=== PATIENT | male | born 1960 | race Hispanic/Latino ===

== ENCOUNTER 2020-03-18 15:06 | Inpatient (IN) | payer MEDICARE ==
[~2020-03-18] VITALS: Ht 167.6 cm; Wt 90.7 kg
[~2020-03-18 15:06] MED LIST: LOSARTAN PO; METFORMIN PO; METOPROLOL PO; NORCO; NOVOLIN INJ; SIMVASTATIN PO
[2020-03-18 16:19] LABS: BASOPHILS % 0.4 % (0.0-1.0); EOSINOPHILS # (AUTO) 0.1 (0.0-0.4); EOSINOPHILS % 0.8 % (0.0-6.0); HEMATOCRIT 34.9 % (38.2-49.6); HEMOGLOBIN 11.4 g/dL (14.0-18.0); LYMPHOCYTES # (AUTO) 1.9 (1.0-3.2); LYMPHOCYTES % 17.4 % (18.0-39.1); MEAN CORPUSCULAR HEMOGLOBIN 26.3 pg (28-32); MEAN CORPUSCULAR HGB CONC 32.7 g/dL (31-35); MEAN CORPUSCULAR VOLUME 80.4 fL (81-99); MONOCYTES # (AUTO) 0.7 (0.2-0.8); MONOCYTES % 6.3 % (4.4-11.3); NEUTROPHILS % 74.8 % (38.7-80.0); PLATELET COUNT 549 x10e3/uL (140-360); RED BLOOD COUNT 4.34 x10e6/uL (4.3-5.7)
[2020-03-18] MEDS ORDERED: GADOBENATE DIMEGLUMINE 1 ML IV ONE (16:36)
[2020-03-18 16:54] LABS: ALBUMIN 3.2 g/dL (3.5-5.0); ALBUMIN/GLOBULIN RATIO 0.7 (0.8-2.0); ANION GAP 17.5 mmol/L (8-16); CALCIUM 8.7 mg/dL (8.4-10.2); CREATININE, SERUM 1.33 mg/dL (0.72-1.25); POTASSIUM 4.5 mmol/L (3.5-5.1)
[2020-03-18] MEDS ORDERED: DEXTROSE 50% SYRINGE 50 ML IV PRN (19:30)
[2020-03-18] MEDS ORDERED: CEFEPIME HCL 1 GM VIAL IV SCH (19:30)
[2020-03-18] MEDS ORDERED: VANCOMYCIN 1GM/NS 250 ML 250 ML IV SCH (20:15)
[2020-03-18] MEDS: HYDROCODONE/APAP 7.5MG-325MG 1 EA TAB PO PRN (20:58)
[2020-03-18] MEDS: CEFEPIME 1GM/NS 0.9% 50 ML 50 ML IV SCH (20:58)
[2020-03-18] MEDS: INSULIN REGULAR, HUMAN 100 UNIT/1 ML 3ML VIAL SQ SCH (21:28)
[2020-03-19] MEDS: INSULIN REGULAR, HUMAN 100 UNIT/1 ML 3ML VIAL SQ SCH ×3 (08:09→17:08)
[2020-03-19] MEDS: CEFEPIME 1GM/NS 0.9% 50 ML 50 ML IV SCH ×2 (09:40→21:00)
[2020-03-19] MEDS ORDERED: ONDANSETRON HCL INJ 2MG/ML 2ML 2 MG/ML VIAL IV PRN (12:45)
[2020-03-19] MEDS ORDERED: MORPHINE SULFATE INJ 4 MG/ML INJ 1ML IV PRN (12:45)
[2020-03-19] MEDS ORDERED: ACETAMINOPHEN 325 MG TAB PO PRN (12:45)
[2020-03-19] MEDS ORDERED: ALBUTEROL/IPRATROPIUM 3 ML NEB NEB PRN (12:45)
[2020-03-19] MEDS ORDERED: LIDOCAINE 4% PATCH TP PRN (12:45)
[2020-03-19] MEDS ORDERED: POLYETHYLENE GLYCOL 3350 17 GM PACK PO PRN (12:45)
[2020-03-19] MEDS ORDERED: DEXTROSE 50% SYRINGE 50 ML IV PRN ×2 (12:45)
[2020-03-19] MEDS ORDERED: POTASSIUM CHLORIDE 20 MEQ TAB CR PO PRN (12:45)
[2020-03-19] MEDS ORDERED: HYDRALAZINE HCL 20 MG/ML VIAL IV PRN (12:45)
[2020-03-19] MEDS ORDERED: SIMETHICONE 80 MG CHEW PO PRN (12:45)
[2020-03-19] MEDS ORDERED: DOCUSATE SODIUM 100 MG CAP PO PRN (12:45)
[2020-03-19] MEDS ORDERED: GUAIFENESIN/CODEINE 10 ML CUP PO PRN (12:45)
[2020-03-19] MEDS ORDERED: BENZONATATE 100 MG CAP PO PRN (12:45)
[2020-03-19] MEDS ORDERED: DIPHENHYDRAMINE HCL 25 MG CAP PO PRN (12:45)
[2020-03-19] MEDS ORDERED: GLIPIZIDE5 MG PO (17:11)
[2020-03-19] MEDS: ENOXAPARIN SOD INJ 40 MG/0.4 ML SYR SC SCH (17:31)
[2020-03-19] MEDS: VANCOMYCIN 1GM/NS 250 ML 250 ML IV SCH (17:31)
[2020-03-19 20:45] VITALS: BP 140/72
[2020-03-19 20:59] VITALS: BP 146/87
[2020-03-19 21:00] VITALS: BP 146/87
[2020-03-19] MEDS ORDERED: MELATONIN 5 MG TABLET PO PRN (21:00)
[2020-03-19] MEDS ORDERED: SODIUM CHLORIDE 0.9% 250ML 250 ML ONE (21:47)
[2020-03-19] MEDS ORDERED: HUMULIN 70100 UNIT/3 SQ (23:59)
[2020-03-20] VITALS (8 sets, daily range): BP systolic 122–161; BP diastolic 76–90
[2020-03-20] MEDS: INSULIN REGULAR, HUMAN 100 UNIT/1 ML 3ML VIAL SQ SCH ×4 (00:04→15:56)
[2020-03-20 05:05] LABS: BASOPHILS % 0.7 % (0.0-1.0); EOSINOPHILS # (AUTO) 0.4 (0.0-0.4); EOSINOPHILS % 6.5 % (0.0-6.0); HEMATOCRIT 32.4 % (38.2-49.6); HEMOGLOBIN 10.4 g/dL (14.0-18.0); LYMPHOCYTES # (AUTO) 2.1 (1.0-3.2); LYMPHOCYTES % 38.3 % (18.0-39.1); MEAN CORPUSCULAR HEMOGLOBIN 26.2 pg (28-32); MEAN CORPUSCULAR HGB CONC 32.1 g/dL (31-35); MEAN CORPUSCULAR VOLUME 81.6 fL (81-99); MONOCYTES # (AUTO) 0.6 (0.2-0.8); MONOCYTES % 11.2 % (4.4-11.3); NEUTROPHILS # (AUTO) 2.3 (2.1-6.9); NEUTROPHILS % 43.1 % (38.7-80.0); PLATELET COUNT 460 x10e3/uL (140-360); RED BLOOD COUNT 3.97 x10e6/uL (4.3-5.7); RED CELL DISTRIBUTION WIDTH 12.9 % (11.7-14.4)
[2020-03-20 05:22] LABS: ALBUMIN 2.6 g/dL (3.5-5.0); ALBUMIN/GLOBULIN RATIO 0.6 (0.8-2.0); ALKALINE PHOSPHATASE 57 IU/L (40-150); ANION GAP 15.1 mmol/L (8-16); BLOOD UREA NITROGEN 23 mg/dL (7-26); BUN/CREATININE RATIO 23 (6-25); CALCIUM 8.5 mg/dL (8.4-10.2); CARBON DIOXIDE 22 mmol/L (22-29); CHLORIDE 104 mmol/L (98-107); CREATININE, SERUM 0.98 mg/dL (0.72-1.25); EST GLOMERULAR FILTRATION RATE > 60 ML/MIN (60-); GLUCOSE 121 mg/dL (74-118); MAGNESIUM 1.7 MG/DL (1.3-2.1); PHOSPHORUS 3.9 MG/DL (2.3-4.7); POTASSIUM 4.1 mmol/L (3.5-5.1); SODIUM 137 mmol/L (136-145)
[2020-03-20 05:41] LABS: ALANINE AMINOTRANSFERASE < 6 IU/L (0-55)
[2020-03-20] MEDS: PANTOPRAZOLE SOD 40 MG TABEC PO SCH (09:16)
[2020-03-20] MEDS: CEFEPIME 1GM/NS 0.9% 50 ML 50 ML IV SCH ×2 (09:16→20:06)
[2020-03-20] MEDS: VANCOMYCIN 1GM/NS 250 ML 250 ML IV SCH (15:52)
[2020-03-20] MEDS: ENOXAPARIN SOD INJ 40 MG/0.4 ML SYR SC SCH (15:52)
[2020-03-20] MEDS ORDERED: DEXTROSE 50% SYRINGE 50 ML IV PRN (18:30)
[2020-03-20] MEDS: SIMVASTATIN 40 MG TAB PO SCH (20:07)
[2020-03-21] VITALS (8 sets, daily range): BP systolic 135–163; BP diastolic 80–93
[2020-03-21 06:05] LABS: BASOPHILS % 0.6 % (0.0-1.0); EOSINOPHILS # (AUTO) 0.3 (0.0-0.4); EOSINOPHILS % 5.9 % (0.0-6.0); HEMATOCRIT 32.8 % (38.2-49.6); HEMOGLOBIN 10.8 g/dL (14.0-18.0); LYMPHOCYTES # (AUTO) 2.1 (1.0-3.2); MEAN CORPUSCULAR HEMOGLOBIN 26.6 pg (28-32); MEAN CORPUSCULAR HGB CONC 32.9 g/dL (31-35); MEAN CORPUSCULAR VOLUME 80.8 fL (81-99); MONOCYTES # (AUTO) 0.5 (0.2-0.8); MONOCYTES % 8.8 % (4.4-11.3); NEUTROPHILS # (AUTO) 2.3 (2.1-6.9); NEUTROPHILS % 44.5 % (38.7-80.0); PLATELET COUNT 475 x10e3/uL (140-360); RED BLOOD COUNT 4.06 x10e6/uL (4.3-5.7); RED CELL DISTRIBUTION WIDTH 12.6 % (11.7-14.4)
[2020-03-21 06:49] LABS: ALANINE AMINOTRANSFERASE 6 IU/L (0-55); ALBUMIN 2.7 g/dL (3.5-5.0); ALBUMIN/GLOBULIN RATIO 0.6 (0.8-2.0); ALKALINE PHOSPHATASE 78 IU/L (40-150); ANION GAP 16.5 mmol/L (8-16); BLOOD UREA NITROGEN 18 mg/dL (7-26); BUN/CREATININE RATIO 19 (6-25); CALCIUM 8.6 mg/dL (8.4-10.2); CARBON DIOXIDE 22 mmol/L (22-29); CHLORIDE 103 mmol/L (98-107); CREATININE, SERUM 0.95 mg/dL (0.72-1.25); EST GLOMERULAR FILTRATION RATE > 60 ML/MIN (60-); GLUCOSE 327 mg/dL (74-118); POTASSIUM 4.5 mmol/L (3.5-5.1); SODIUM 137 mmol/L (136-145)
[2020-03-21] MEDS ORDERED: REG INSULIN SQ SCH ×2 (09:00)
[2020-03-21] MEDS ORDERED: [UNRECOGNIZED DRUG - OTHER] SQ SCH (09:00)
[2020-03-21] MEDS ORDERED: [UNRECOGNIZED DRUG - OTHER] SQ SCH (09:00)
[2020-03-21] MEDS ORDERED: INSULIN NPH HUM SQ SCH ×2 (09:00)
[2020-03-21] MEDS: PANTOPRAZOLE SOD 40 MG TABEC PO SCH (09:09)
[2020-03-21] MEDS: CEFEPIME 1GM/NS 0.9% 50 ML 50 ML IV SCH ×2 (09:09→21:12)
[2020-03-21] MEDS: LOSARTAN POTASSIUM 100 MG TAB PO SCH (09:10)
[2020-03-21] MEDS: METOPROLOL TARTRATE 50 MG TAB PO SCH (09:11)
[2020-03-21] MEDS: SILVER ANTIMICROBIAL WOUND GEL 45ML TP SCH (09:12)
[2020-03-21] MEDS: HUMULIN 70/30 VIAL SQ SCH ×6 (09:47→17:15)
[2020-03-21] MEDS: VANCOMYCIN 1GM/NS 250 ML 250 ML IV SCH (17:14)
[2020-03-21] MEDS: ENOXAPARIN SOD INJ 40 MG/0.4 ML SYR SC SCH (17:15)
[2020-03-21] MEDS: SIMVASTATIN 40 MG TAB PO SCH (21:45)
[2020-03-22] VITALS: BP 154/89
[2020-03-22 04:00] VITALS: BP 141/80
[2020-03-22 08:21] VITALS: BP 168/94
[2020-03-22] MEDS: CEFEPIME 1GM/NS 0.9% 50 ML 50 ML IV SCH ×2 (09:35→20:02)
[2020-03-22] MEDS: PANTOPRAZOLE SOD 40 MG TABEC PO SCH (09:35)
[2020-03-22] MEDS: LOSARTAN POTASSIUM 100 MG TAB PO SCH (09:36)
[2020-03-22] MEDS: HUMULIN 70/30 VIAL SQ SCH ×2 (09:36→17:22)
[2020-03-22] MEDS: METOPROLOL TARTRATE 50 MG TAB PO SCH (09:36)
[2020-03-22] MEDS: SILVER ANTIMICROBIAL WOUND GEL 45ML TP SCH (09:36)
[2020-03-22 15:52] VITALS: BP 170/99
[2020-03-22] MEDS: VANCOMYCIN 1GM/NS 250 ML 250 ML IV SCH (17:22)
[2020-03-22] MEDS: ENOXAPARIN SOD INJ 40 MG/0.4 ML SYR SC SCH (17:22)
[2020-03-22 20:00] VITALS: BP 160/91
[2020-03-22] MEDS: SIMVASTATIN 40 MG TAB PO SCH (20:02)
[2020-03-23] VITALS (9 sets, daily range): BP systolic 139–177; BP diastolic 77–95
[2020-03-23] MEDS: CEFEPIME 1GM/NS 0.9% 50 ML 50 ML IV SCH ×2 (09:20→21:04)
[2020-03-23] MEDS: PANTOPRAZOLE SOD 40 MG TABEC PO SCH (09:20)
[2020-03-23] MEDS: HUMULIN 70/30 VIAL SQ SCH ×2 (09:21→16:37)
[2020-03-23] MEDS: LOSARTAN POTASSIUM 100 MG TAB PO SCH ×2 (09:21→13:18)
[2020-03-23] MEDS: METOPROLOL TARTRATE 50 MG TAB PO SCH (09:21)
[2020-03-23] MEDS: SILVER ANTIMICROBIAL WOUND GEL 45ML TP SCH (09:21)
[2020-03-23] MEDS: VANCOMYCIN HCL 1.25 GM in SODIUM CHLORIDE 0.9% 250ML 250 ML IV SCH (14:24)
[2020-03-23] MEDS: ENOXAPARIN SOD INJ 40 MG/0.4 ML SYR SC SCH (16:37)
[2020-03-23] MEDS: SIMVASTATIN 40 MG TAB PO SCH (21:04)
[2020-03-24] VITALS (9 sets, daily range): BP systolic 136–177; BP diastolic 78–97
[2020-03-24] MEDS: VANCOMYCIN HCL 1.25 GM in SODIUM CHLORIDE 0.9% 250ML 250 ML IV SCH ×2 (02:00→15:53)
[2020-03-24 06:49] LABS: BASOPHILS # (AUTO) 0.1 (0.0-0.1); BASOPHILS % 0.7 % (0.0-1.0); EOSINOPHILS # (AUTO) 0.4 (0.0-0.4); EOSINOPHILS % 4.9 % (0.0-6.0); HEMATOCRIT 33.4 % (38.2-49.6); HEMOGLOBIN 10.8 g/dL (14.0-18.0); LYMPHOCYTES # (AUTO) 2.5 (1.0-3.2); LYMPHOCYTES % 33.4 % (18.0-39.1); MEAN CORPUSCULAR HGB CONC 32.3 g/dL (31-35); MEAN CORPUSCULAR VOLUME 80.5 fL (81-99); MONOCYTES # (AUTO) 0.5 (0.2-0.8); MONOCYTES % 6.7 % (4.4-11.3); NEUTROPHILS # (AUTO) 3.9 (2.1-6.9); NEUTROPHILS % 53.8 % (38.7-80.0); PLATELET COUNT 407 x10e3/uL (140-360); RED BLOOD COUNT 4.15 x10e6/uL (4.3-5.7); RED CELL DISTRIBUTION WIDTH 12.9 % (11.7-14.4)
[2020-03-24 07:33] LABS: ANION GAP 15.9 mmol/L (8-16); BLOOD UREA NITROGEN 18 mg/dL (7-26); BUN/CREATININE RATIO 20 (6-25); CARBON DIOXIDE 23 mmol/L (22-29); CHLORIDE 104 mmol/L (98-107); EST GLOMERULAR FILTRATION RATE > 60 ML/MIN (60-); GLUCOSE 193 mg/dL (74-118); POTASSIUM 3.9 mmol/L (3.5-5.1); SODIUM 139 mmol/L (136-145)
[2020-03-24] MEDS: LOSARTAN POTASSIUM 100 MG TAB PO SCH ×2 (08:45)
[2020-03-24] MEDS: CEFEPIME 1GM/NS 0.9% 50 ML 50 ML IV SCH ×2 (08:45→21:12)
[2020-03-24] MEDS: PANTOPRAZOLE SOD 40 MG TABEC PO SCH (08:45)
[2020-03-24] MEDS: METOPROLOL TARTRATE 50 MG TAB PO SCH (08:45)
[2020-03-24] MEDS: HUMULIN 70/30 VIAL SQ SCH ×2 (08:45→17:36)
[2020-03-24] MEDS: SILVER ANTIMICROBIAL WOUND GEL 45ML TP SCH (08:46)
[2020-03-24] MEDS: ENOXAPARIN SOD INJ 40 MG/0.4 ML SYR SC SCH (17:36)
[2020-03-24] MEDS: SIMVASTATIN 40 MG TAB PO SCH (21:12)
[2020-03-24] MEDS: HYDROCODONE/APAP 7.5MG-325MG 1 EA TAB PO PRN (21:13)
[2020-03-25] VITALS (8 sets, daily range): BP systolic 118–166; BP diastolic 52–96
[2020-03-25] MEDS: VANCOMYCIN HCL 1.25 GM in SODIUM CHLORIDE 0.9% 250ML 250 ML IV SCH ×2 (02:00→13:44)
[2020-03-25] MEDS ORDERED: SODIUM CHLORIDE 0.9% 250ML 250 ML ONE (07:27)
[2020-03-25] MEDS: LOSARTAN POTASSIUM 100 MG TAB PO SCH ×2 (08:44)
[2020-03-25] MEDS: PANTOPRAZOLE SOD 40 MG TABEC PO SCH (08:44)
[2020-03-25] MEDS: CEFEPIME 1GM/NS 0.9% 50 ML 50 ML IV SCH ×2 (08:44→21:18)
[2020-03-25] MEDS: METOPROLOL TARTRATE 50 MG TAB PO SCH (08:45)
[2020-03-25] MEDS: HUMULIN 70/30 VIAL SQ SCH ×2 (08:45→18:00)
[2020-03-25] MEDS ORDERED: CARVEDILOL 12.5 MG TAB PO ONE (17:45)
[2020-03-25] MEDS: ENOXAPARIN SOD INJ 40 MG/0.4 ML SYR SC SCH (18:00)
[2020-03-25] MEDS: SILVER ANTIMICROBIAL WOUND GEL 45ML TP SCH (18:00)
[2020-03-25] MEDS: SIMVASTATIN 40 MG TAB PO SCH (21:18)
[2020-03-25] MEDS ORDERED: HYDROCODONE/APAP 7.5MG-325MG 1 EA TAB PO PRN (21:45)
[2020-03-26] VITALS (8 sets, daily range): BP systolic 131–158; BP diastolic 76–95
[2020-03-26] MEDS: VANCOMYCIN HCL 1.25 GM in SODIUM CHLORIDE 0.9% 250ML 250 ML IV SCH ×2 (01:25→13:59)
[2020-03-26] MEDS: CEFEPIME 1GM/NS 0.9% 50 ML 50 ML IV SCH (08:56)
[2020-03-26] MEDS: PANTOPRAZOLE SOD 40 MG TABEC PO SCH (08:56)
[2020-03-26] MEDS: LOSARTAN POTASSIUM 100 MG TAB PO SCH (08:57)
[2020-03-26] MEDS: SILVER ANTIMICROBIAL WOUND GEL 45ML TP SCH (08:58)
[2020-03-26] MEDS: HUMULIN 70/30 VIAL SQ SCH ×2 (09:00→17:17)
[2020-03-26] MEDS: CARVEDILOL 12.5 MG TAB PO SCH ×2 (12:00→16:13)
[2020-03-26] MEDS ORDERED: CEFTRIAXONE SOD 1 GM/NS 50 ML 50 ML IV SCH (16:00)
[2020-03-26] MEDS: SIMVASTATIN 40 MG TAB PO SCH (21:06)
[2020-03-27 00:38] VITALS: BP 124/67
[2020-03-27] MEDS: VANCOMYCIN HCL 1.25 GM in SODIUM CHLORIDE 0.9% 250ML 250 ML IV SCH ×2 (01:27→14:02)
[2020-03-27 05:59] VITALS: BP 124/73
[2020-03-27 08:00] VITALS: BP 145/81
[2020-03-27] MEDS: HUMULIN 70/30 VIAL SQ SCH (09:00)
[2020-03-27] MEDS: SILVER ANTIMICROBIAL WOUND GEL 45ML TP SCH (09:00)
[2020-03-27 09:07] VITALS: BP 145/81
[2020-03-27 09:15] VITALS: BP 145/81
[2020-03-27] MEDS: PANTOPRAZOLE SOD 40 MG TABEC PO SCH (09:53)
[2020-03-27] MEDS: LOSARTAN POTASSIUM 100 MG TAB PO SCH (09:57)
[2020-03-27] MEDS: CARVEDILOL 12.5 MG TAB PO SCH (09:57)
[2020-03-27 12:06] VITALS: BP 140/82
== END 2020-03-27 16:24 | disposition home or self-care (01) | DRG 638 ==
LOC: ER 15:15 → ERHOLD 19:44 → MED/SURG2 03-19 20:45
PROVIDERS: ADMIT Internal Medicine; ATTEND Internal Medicine
PROC: 02HV33Z Insertion of Infusion Device into Superior Vena Cava, Percutaneous Approach (ICD-10-PCS; principal; 2020-03-21)
DX: E11.69 Type 2 diabetes mellitus with other specified complication (principal); M86.8X7 Other osteomyelitis, ankle and foot; E11.621 Type 2 diabetes mellitus with foot ulcer; E11.40 Type 2 diabetes mellitus with diabetic neuropathy, unspecified; E78.5 Hyperlipidemia, unspecified; I10 Essential (primary) hypertension; E66.01 Morbid (severe) obesity due to excess calories; Z68.32 Body mass index [BMI] 32.0-32.9, adult; Z79.899 Other long term (current) drug therapy; E11.51 Type 2 diabetes mellitus with diabetic peripheral angiopathy without gangrene; Z89.512 Acquired absence of left leg below knee; Z20.822 Contact with and (suspected) exposure to COVID-19; N17.9 Acute kidney failure, unspecified
CPT/HCPCS: 36415; 36569; 71045; 74470; 80048; 80053; 80202; 82948; 83036; 83735; 84100; 85025; 85651; 86140; 87040; 93926; 99251; 99285; J0360; J0692; J0696; J1650; J1817; J3370; J7050; U0002